=== PATIENT | male | born 1985 | race Hispanic/Latino ===

== ENCOUNTER 2019-05-13 23:19 | Emergency (ER) | payer OTHER | END 2019-05-14 00:28 | disposition home or self-care (01) | LOC: EDH 23:19 | DX: K02.9 Dental caries, unspecified (principal); Z72.0 Tobacco use ==

== ENCOUNTER 2021-08-09 12:33 | Emergency (ER) | payer SELFPAY ==
[~2021-08-09] VITALS: Ht 177.8 cm; Wt 127.0 kg
[2021-08-09 12:35] VITALS: BP 143/90
== END 2021-08-09 17:26 | disposition left against medical advice (07) ==
LOC: EDH 12:33
DX: G89.29 Other chronic pain (principal); M54.6 Pain in thoracic spine
CPT/HCPCS: 99281